=== PATIENT | male | born 1980 | race Caucasian/White ===

== ENCOUNTER 2021-07-03 23:08 | Emergency (ER) | payer MEDICAID ==
[~2021-07-03] VITALS: Ht 172.7 cm; Wt 90.9 kg
[2021-07-04] MEDS ORDERED: amox tr/potassium clavulanate 875/125mg TAB PO ONE (01:20)
[2021-07-04] MEDS ORDERED: ketorolac trometh inj. 60 MG/2 ML VIAL IM ONE (01:20)
[2021-07-04] MEDS ORDERED: AMOX-117 PO (01:21)
[2021-07-04 01:33] VITALS: BP 150/87
== END 2021-07-04 01:35 | disposition home or self-care (01) ==
LOC: ER 23:10
DX: K04.7 Periapical abscess without sinus (principal); K02.9 Dental caries, unspecified; K08.89 Other specified disorders of teeth and supporting structures; J45.909 Unspecified asthma, uncomplicated; Z88.5 Allergy status to narcotic agent; Z79.2 Long term (current) use of antibiotics
CPT/HCPCS: 96372; 99283; J1885